=== PATIENT | male | born 1990 | race Asian ===

== ENCOUNTER 2017-11-22 09:46 | Emergency (ER) | payer MEDICAID ==
[2017-11-22 09:51] VITALS: BP 123/50; PULSE 60; RESP 20; TEMP 97.3; O2SAT 93
--- NOTE | 2017-11-22 10:03 | EDPHY ---
H & P Time Seen by Provider: 11/22/17 10:00 HPI/ROS: Chief complaint: Right ear fullness History of present illness: This is a 27-year-old male who presents to the emergency department for evaluation of weight ear fold. He reports the onset of symptoms last night. He does state his roommate was making loud noises by stopping around when symptoms began. He denies other associated signs or symptoms including no actual pain. No discharge from the ear. No fever or cold symptoms. No lightheadedness, dizziness or vertigo. He does have a history of tenderness, it has been evaluated by ENT is thought to be benign. No current issues. Smoking Status: Current every day smoker Physical Exam: General Appearance: Alert, nontoxic. Eyes: Pupils equal and round no injection. ENT: Right tympanic membrane with effusion noted behind. No erythema. No evidence of perforation. The external auditory canal and external ear unremarkable. Left ear and TM is unremarkable. Nasopharynx is not injected. There is no rhinorrhea. Oropharynx is not injected. There is no edema. There is no exudate. There is no asymmetry. The uvula is midline. No elevation of the tongue. There is no hoarseness, no drooling, no trismus, no stridor. Respiratory: Chest is non tender, lungs are clear to auscultation. Cardiac: regular rate and rhythm Musculoskeletal: Neck is supple and non tender. Extremities have full range of motion and are non tender. Skin: No rashes or lesions. Neurological: Alert and oriented x4. Cranial nerves 2-12 grossly intact. Strength and sensation intact and symmetrical. Constitutional: Initial Vital Signs Temperature (C) 36.3 C 11/22/17 09:49 Heart Rate 60 11/22/17 09:49 Respiratory Rate 20 11/22/17 09:49 Blood Pressure 123/50 H 11/22/17 09:49 O2 Sat (%) 93 11/22/17 09:49 O2 Delivery Mode Room Air Allergies/Adverse Reactions: No Known Allergies Allergy (Verified 11/22/17 09:48) Home Medications: Medication Instructions Recorded predniSONE [Prednisone] 10 mg PO DAILY 3 Days tablet 11/22/17 MDM/Departure - [facility] ED Course/Re-evaluation: Patient seen under the supervision of my secondary supervising physician Dr. Trevon Leos. Patient presents for right ear fullness. He does have a small serous effusion. The rest of his exam including neurologic exam is benign. I have discussed symptomatic care including a short course of low-dose prednisone. He is referred to ENT for recheck. Strict return precautions are given. Patient voiced understanding and agreement with plan. Differential Diagnosis: Included but not limited to otitis media, tympanic membrane perforation, otitis externa - Depart Disposition: Home, Routine, Self-Care Clinical Impression: Ear fullness Qualifiers: Laterality: right Qualified Code(s): H93.8X1 - Other specified disorders of right ear Condition: Good Instructions: Earache (ED) Additional Instructions: Follow-up with ENT for recheck Use ibuprofen 600 mg 3 times a day for the next 2-3 days for symptom control You can also use prednisonefor symptom control If symptoms worsen or new symptoms develop return to the emergency room for recheck Prescriptions: predniSONE [Prednisone] 10 mg PO DAILY 3 Days tablet Referrals: NONE *PRIMARY CARE P,. [Primary Care Provider] - As per Instructions Fredy Bnuch MD [Medical Doctor] - As per Instructions
== END 2017-11-22 10:10 | disposition home or self-care (01) ==
DX: H93.8X1 Other specified disorders of right ear (principal); F17.200 Nicotine dependence, unspecified, uncomplicated

== ENCOUNTER 2018-06-27 00:51 | Emergency (ER) | payer SELFPAY ==
--- NOTE | 2018-06-27 01:12 | EDPHY ---
H & P Stated Complaint: right foot injury Time Seen by Provider: 06/27/18 01:12 HPI/ROS: HPI CHIEF COMPLAINT: Right ankle pain. HISTORY OF PRESENT ILLNESS: Otherwise healthy 27-year-old male, presents emergency room with lateral right ankle pain. Patient states he inverted his right foot/ankle. He was trying to take care of a intoxicated democrat. He tripped. Rolled his ankle. Now has right lateral ankle pain. Denies any other areas of injury. Past Medical History: Denies medical history Past Surgical History: Denies surgical history Social History: Smokes marijuana, denies illicit drugs. Or alcohol. Family History: Noncontributory ROS REVIEW OF SYSTEMS: 10 Systems were reviewed and negative with the exception of the elements mentioned in the history of present illness. Exam Constitutional nontoxic triage nursing summary reviewed, vital signs reviewed, awake/alert. Eyes normal conjunctivae and sclera, EOMI, PERRLA. HENT normal inspection, atraumatic, moist mucus membranes, no epistaxis, neck supple/ no meningismus, no raccoon eyes. Respiratory clear to auscultation bilaterally, normal breath sounds, no respiratory distress, no wheezing. Cardiovascular rate normal, regular rhythm, no murmur, no edema, distal pulses normal. Gastrointestinal soft, non-tender, no rebound, no guarding, normal bowel sounds, no distension, no pulsatile mass. Genitourinary no CVA tenderness. Musculoskeletal right lower extremity: Good distal pulse, good cap refill, mild tender palpation over the lateral right malleolus. No compartment syndrome. No crepitus. No significant swelling. no midline vertebral tenderness, full range of motion, no calf swelling, no tenderness of extremities, no meningismus, good pulses, neurovascularly intact. Skin pink, warm, & dry, no rash, skin atraumatic. Neurologic awake, alert and oriented x 3, AAOx3, moves all 4 extremities equally, motor intact, sensory intact, CN II-XII intact, normal cerebellar, normal vision, normal speech. Psychiatric normal mood/affect. Heme/Lymph/Immune no lymphadenopathy. Differential Diagnosis: Includes but is not limited to in a particular order right ankle sprain, right ankle contusion, soft tissue injury Medical Decision Making: Plan for this patient x-ray right ankle. Re-evaluation: X-ray of the right ankle reviewed by myself. No evidence of acute fracture. Patient been placed in a walking boot. Recommend elevation, ice, anti- inflammatory pain medicine. Recommend following with Orthopedics. Patient is comfortable this plan. Tylenol Motrin for pain. Source: Patient - Personal History Current Tetanus/Diphtheria Vaccine: Yes Current Tetanus Diphtheria and Acellular Pertussis (TDAP): Yes Tetanus Vaccine Date: < 10 years - Medical/Surgical History Hx Asthma: No Hx Chronic Respiratory Disease: No Hx Diabetes: No Hx Cardiac Disease: No Hx Renal Disease: No Hx Cirrhosis: No Hx Alcoholism: No Hx HIV/AIDS: No Hx Splenectomy or Spleen Trauma: No Other PMH: childhood asthma, appy ~2008 - Social History Smoking Status: Current every day smoker Constitutional: Initial Vital Signs Temperature (C) 36.6 C 06/27/18 00:53 Heart Rate 72 06/27/18 00:53 Respiratory Rate 16 06/27/18 00:53 Blood Pressure 124/70 H 06/27/18 00:53 O2 Sat (%) 98 06/27/18 00:53 O2 Delivery Mode Room Air Allergies/Adverse Reactions: No Known Allergies Allergy (Verified 06/27/18 00:55) Home Medications: Medication Instructions Recorded NK [No Known Home Meds] 06/27/18 Medical Decision Making - Data Points Medications Given: Discontinued Medications Acetaminophen (Tylenol) 1,000 mg PO EDNOW ONE Stop: 06/27/18 01:39 Last Admin: 06/27/18 01:52 Dose: 1,000 mg Departure - Departure Disposition: Home, Routine, Self-Care Clinical Impression: Ankle sprain Qualifiers: Encounter type: initial encounter Involved ligament of ankle: unspecified ligament Laterality: right Qualified Code(s): S93.401A - Sprain of unspecified ligament of right ankle, initial encounter Condition: Good Instructions: Ankle Sprain (ED) Additional Instructions: 1. Recommend ice. 2. Recommend anti-inflammatory pain medicine 3. Recommend elevation 4. Walking boot for comfort 5. Follow up with Orthopedics if continue have pain. Referrals: NONE *PRIMARY CARE P,. [Primary Care Provider] - As per Instructions Michael Flores MD [Medical Doctor] - As per Instructions
[2018-06-27] MEDS ORDERED: ACETAMINOPHEN 500 MG TAB PO ONE (01:38)
[2018-06-27 03:49] VITALS: BP 118/65
[2018-06-29 06:55] LABS: HEPATITIS C ANTIBODY TOTAL NEGATIVE (NEGATIVE); HIV TYPE 1 AND 2 NEGATIVE (NEGATIVE)
== END 2018-06-27 03:58 | disposition home or self-care (01) ==
DX: S93.401A Sprain of unspecified ligament of right ankle, initial encounter (principal); W18.49XA Other slipping, tripping and stumbling without falling, initial encounter; Y92.9 Unspecified place or not applicable; Y93.01 Activity, walking, marching and hiking; F17.200 Nicotine dependence, unspecified, uncomplicated
CPT/HCPCS: G0472